=== PATIENT | female | born 1990 | race African-American/Black ===

== ENCOUNTER 2021-05-26 21:47 | Emergency (ER) | payer SELFPAY ==
[~2021-05-26] VITALS: Ht 167.6 cm; Wt 101.7 kg
[2021-05-26 21:48] VITALS: BP 144/87
== END 2021-05-26 23:24 | disposition left against medical advice (07) ==
LOC: M ED 21:47
DX: Z53.21 Procedure and treatment not carried out due to patient leaving prior to being seen by health care provider (principal)

== ENCOUNTER 2021-05-27 00:27 | Emergency (ER) | payer SELFPAY ==
[~2021-05-27] VITALS: Ht 167.6 cm; Wt 101.7 kg
[2021-05-27 00:28] VITALS: BP 137/90
== END 2021-05-27 03:47 | disposition left against medical advice (07) ==
LOC: M ED 00:27
DX: Z53.21 Procedure and treatment not carried out due to patient leaving prior to being seen by health care provider (principal)